=== PATIENT | female | born 1965 | race Two or more races ===

== ENCOUNTER 2016-12-16 17:13 | Emergency (ER) | payer OTHER ==
[~2016-12-16] VITALS: Ht 157.5 cm; Wt 73.9 kg
[2016-12-16 17:14] VITALS: BP 134/84
[2016-12-16 18:13] LABS: RAPID INFLUENZA A Negative (Negative); RAPID INFLUENZA B Negative (Negative)
== END 2016-12-16 19:07 | disposition home or self-care (01) ==
LOC: ED 19:01
DX: J00 Acute nasopharyngitis [common cold] (principal); J02.9 Acute pharyngitis, unspecified; B97.89 Other viral agents as the cause of diseases classified elsewhere
CPT/HCPCS: 71020; 87081; 87400; 87880; 93005; 99285